=== PATIENT | female | born 1950 | race Caucasian/White ===

== ENCOUNTER 2021-10-08 10:38 | Day surgery (SDC) | payer OTHER ==
[~2021-10-08] VITALS: Ht 157.5 cm; Wt 57.2 kg
[2021-10-08] MEDS ORDERED: PROPOFOL 1% 20 ML VIAL IVP ONE (10:39)
[2021-10-08] MEDS ORDERED: LIDOCAINE/PF 1% 5 ML VIAL IM ONE (10:39)
[2021-10-08] MEDS ORDERED: SODIUM CHLORIDE 0.9% 1,000 ML ONE (10:48)
[2021-10-08 11:21] LABS: COVID AG,FIA SOURCE NASOPHARYNGEAL
[2021-10-08] MEDS ORDERED: SODIUM CHLORIDE 0.9% 1,000 ML IV ONE (14:15)
[2021-10-08] MEDS ORDERED: OXYGEN THERAPY IH SCH (20:00)
== END 2021-10-08 13:45 | disposition home or self-care (01) ==
LOC: SURGERY 10:38
PROVIDERS: ATTEND Specialist
DX: K29.50 Unspecified chronic gastritis without bleeding (principal); Z98.890 Other specified postprocedural states; Z87.01 Personal history of pneumonia (recurrent); Z91.09 Other allergy status, other than to drugs and biological substances; Z88.1 Allergy status to other antibiotic agents; Z79.899 Other long term (current) drug therapy
CPT/HCPCS: 43239; 87426; 88305; 88312; 88313; C1769; C9803; J2001; J2704; J7030